=== PATIENT | male | born 1970 | race Caucasian/White ===

== ENCOUNTER 2016-07-25 16:34 | Emergency (ER) | payer SELFPAY ==
[2016-07-25 16:47] VITALS: BP 131/76; BMI 35.1
[2016-07-25] MEDS ORDERED: TORADOL 60 MG VIAL IM ONE (17:15)
--- NOTE | 2016-07-25 17:17 | DR.CP ---
HPI - Time Seen Time seen: 17:15 - PCP Primary Care Physician: DENIS - HPI Comment HPI Comment: GOING ON FOR WEEKS, WORSE TODAY. HAVE GENERALIZE WEAKNESS, - Complaint Chief Complaint Doctor Comments: HEADCHE, CHEST PAIN. Chief Complaint:: PT STATES " I HAVE A MIGRAIN AND MY CHEST IS TINGLING AND NUMBNESS TO HIS LEFT HAND ".. Self Treatment fo Chief Complaint: PT STATES " THIS HAS BEEN GOING ON FOR A FEW WEEKS AND IT HAS GOT WORSE IN THE PAST FEW DAYS.. " - Reviewed Nurses Notes Review: Yes - Source History Provided: Patient - Mode of Arrival Mode of Arrival: Ambulatory - Timing Onset of Chief Complaint: 07/20/16 Came on: Gradually Pain: Present Now - Duration Duration: Constant Duration: Weeks - Location Chest Pain Radiation Location: None - Context Onset: At rest Cardiac Risk Factors: Smoker PE Risk Factors: None History of: None Prehospital Care: None - Quality Quality: Sharp - Severity Severity: Moderate - Modifying Factors Worsens: Nothing Impoves: Nothing - Associated Signs and Symptoms Associated Signs and Symptoms: None PMH - PMH Past Medical History: No Past Medical History: Anxiety, Depression, Kidney Stones Past Surgical History: Yes Surgical History: Lithotripsy Past Surgical History Comment: HERNIA REPAIR AT AGE 15 - Family History History of Family Medical Conditions: No Family Medical History: Hypertension - Social History Does patient currently use any type of tobacco product: Yes Have you used tobacco products in the last 12 months: Yes Type of Tobacco Use: Cigarettes How many years tobacco product used: 30 Does any household member use tobacco: No Alcohol Use: None Do you use any recreational Drugs:: No Lives With: Family Lives Where: Home - infectious screening In the last 2 months have you had wt loss of >10#?: NO Have you had fever, night sweats or hemotysis?: No Have you traveled outside the country in the last 6 months?: No Isolation: Standard ROS - Review of Systems Constitutional: Weakness, Fatigue Eyes: No Symptoms Reported ENTM: No Symptoms Reported Respiratoy: No Symptoms Reported Cardiovascular: Chest Pain Gastrointestinal/Abdominal: Nausea Genitourinary: No Symptoms Reported Neurological: Headache, Weakness Musculoskeletal: Muscle Pain Integumentary: No Symptoms Reported Hematologic/Lymphatic: No Symptoms Reported Endocrine: No Symptoms Reported All Other Systems: Reviewed and Negative PE - Vitals Vitals: Pulse Rate 66 Respiratory Rate 22 Blood Pressure 131/76 O2 Sat by Pulse Oximetry 97 - General Limitations: No Limitations General Appearance: Alert - Head Head Exam: Normal Inspection - Eyes Eye exam: Normal Appearance - ENT ENT Exam: Normal External Ear Exam - Chest Chest Inspection: Symmetric Chest Wall Rise - Respiratory Respiratory Exam: Normal Lung Sounds Bilat Respiratory Exam: Bilateral Clear to Auscultation - Cardiovascular Cardiovascular Exam: Regular Rate Pulse: Normal, Radial, Femoral Edema: Normal - Abdominal Exam Abdominal Exam: Normal Inspection - Extremities Extremities Exam: Normal Inspection - Back Back Exam: Normal Inspection - Neurologic Neurological Exam: Alert, Oriented X3 MDM - Additional Information Additional Information Obtained From: Family - Differential Diagnosis Differential Diagnosis: Angina, Cholelithasis, Gastritis, Myocardial Infarction , Pneumothorax (MIGRAINE, SINUS HEADACHE) Course - Treatment Treatment: SEE ORDERS - Education/Counseling Education/Counseling: Patient, Education Educated On: Treatment, Diagnosis, Needs for Follow Up ROR - Labs Reviewed Laboratory Results Reviewed?: Yes Result Diagrams: 07/25/16 17:25 07/25/16 17:25 Laboratory: WBC 11.4 X10^3/uL (3.6-10.0) H 07/25/16 17:25 RBC 5.46 X10^6/uL (4.7-6.0) 07/25/16 17:25 Hgb 16.4 g/dL (13.5-18.0) 07/25/16 17:25 Hct 47.3 % (42.0-54.0) 07/25/16 17:25 MCV 86.7 fL (80.0-100.0) 07/25/16 17:25 MCH 30.1 pg (27.0-34.0) 07/25/16 17:25 MCHC 34.7 g/dL (33.0-35.0) 07/25/16 17:25 RDW 13.0 % (11.6-16.5) 07/25/16 17:25 Plt Count 289 X10^3/uL (150.0-450.0) 07/25/16 17:25 MPV 8.6 fL (7.4-11.0) 07/25/16 17:25 Neut % 68.2 % (42.0-75.0) 07/25/16 17:25 Lymph % 20.5 % (21.0-51.0) L 07/25/16 17:25 [place] % 7.3 % (0.0-13.0) 07/25/16 17:25 Eos % 3.3 % (0.9-2.9) H 07/25/16 17:25 Baso % 0.7 % (0.2-1.0) 07/25/16 17:25 Neut # 7.7 x10^3/uL (2.2-4.8) H 07/25/16 17:25 Lymph # 2.3 X10^3/uL (1.3-2.9) 07/25/16 17:25 [place] # 0.8 x10^3/uL (0.3-0.8) 07/25/16 17:25 Eos # 0.4 x10^3/uL (0.0-0.2) H 07/25/16 17:25 Baso # 0.1 X10^3/uL (0.0-0.1) 07/25/16 17:25 Absolute Nucleated RBC 0.0 /100WBC 07/25/16 17:25 Sodium 141 mmol/L (136-145) 07/25/16 17:25 Corrected Sodium TNP 07/25/16 17:25 Potassium 4.0 mmol/L (3.5-5.1) 07/25/16 17:25 Chloride 105 mmol/L (98-107) 07/25/16 17:25 Carbon Dioxide 24.1 mmol/L (21-32) 07/25/16 17:25 BUN 19 mg/dL (7-18) H 07/25/16 17:25 Creatinine 1.06 mg/dL (0.70-1.30) 07/25/16 17:25 Est GFR (MDRD) Af Amer > 60 (>60) 07/25/16 17:25 Est GFR (MDRD) Non-Af > 60 (>60) 07/25/16 17:25 Glucose 100 mg/dL (65-99) H 07/25/16 17:25 Calcium 8.6 mg/dL (8.5-10.1) 07/25/16 17:25 Corrected Calcium TNP 07/25/16 17:25 Total Bilirubin 0.30 mg/dL (0.2-1.0) 07/25/16 17:25 AST 13 Units/L (15-37) L 07/25/16 17:25 ALT 33 Units/L (12-78) 07/25/16 17:25 Alkaline Phosphatase 75 Units/L (46-116) 07/25/16 17:25 Creatine Kinase 60 Units/L (39-308) 07/25/16 17:25 CK-MB (CK-2) < 1.0 ng/mL (0-4.0) 07/25/16 17:25 CK/CKMB % Calc 1.7 % (<4) 07/25/16 17:25 Troponin I < 0.02 ng/mL (0-1.5) 07/25/16 17:25 Total Protein 7.1 g/dL (6.4-8.2) 07/25/16 17:25 Albumin 3.5 g/dL (3.4-5.0) 07/25/16 17:25 Globulin 3.6 g/dL (2.5-4.5) 07/25/16 17:25 Albumin/Globulin Ratio 1.0 Ratio (1.1-2.1) L 07/25/16 17:25 - XRAY XRAY Interpreted by: Radiologist XRAY Findings: REPORT DISCUSS WITH PATIENT - EKG Rhythm: NSR (EKG NOTED) - Diagnosis Discharge Problem: Sinus headache, Weakness Sinusitis Qualifiers: Sinusitis location: unspecified location Chronicity: acute Recurrence: not specified as recurrent Qualified Code(s): J01.90 - Acute sinusitis, unspecified Chest pain Qualifiers: Chest pain type: precordial pain Qualified Code(s): R07.2 - Precordial pain - Discharge Plan Disposition: 01 HOME, SELF-CARE Condition: Stable Prescriptions: Amoxicillin [Amoxil 875 mg] 875 mg PO BID #20 tab Nilusycyjv-Ygyd-Gkexneqi [Fioricet Tab] 1 tab PO Q8H PRN #20 tab PRN Reason: Migraine Headache Cetirizine HCl [Zyrtec Tab 10 mg] 10 mg PO DAILY #10 tab - Follow ups/Referrals Follow ups/Referrals: [facility],None [Primary Care Provider] - 3 days - Instructions Instructions: Sinus Headache, [id number], Sinusitis, Adult, Weakness, Easy-to -Read Additional Instructions: RETURN TO ED IF WORSE.
[2016-07-25 17:31] LABS: BASOPHILS # (AUTO) 0.1 X10^3/uL (0.0-0.1); BASOPHILS % (AUTO) 0.7 % (0.2-1.0); EOSINOPHILS # (AUTO) 0.4 x10^3/uL (0.0-0.2); EOSINOPHILS % (AUTO) 3.3 % (0.9-2.9); HEMATOCRIT 47.3 % (42.0-54.0); HEMOGLOBIN 16.4 g/dL (13.5-18.0); LYMPHOCYTES # (AUTO) 2.3 X10^3/uL (1.3-2.9); LYMPHOCYTES % (AUTO) 20.5 % (21.0-51.0); MEAN CORPUSCULAR HEMOGLOBIN 30.1 pg (27.0-34.0); MEAN CORPUSCULAR HGB CONC 34.7 g/dL (33.0-35.0); MEAN CORPUSCULAR VOLUME 86.7 fL (80.0-100.0); MEAN PLATELET VOLUME 8.6 fL (7.4-11.0); MONOCYTES # (AUTO) 0.8 x10^3/uL (0.3-0.8); MONOCYTES % (AUTO) 7.3 % (0.0-13.0); NEUTROPHILS # (AUTO) 7.7 x10^3/uL (2.2-4.8); NEUTROPHILS % (AUTO) 68.2 % (42.0-75.0); PLATELET COUNT 289 X10^3/uL (150.0-450.0); RED BLOOD COUNT 5.46 X10^6/uL (4.7-6.0); WHITE BLOOD COUNT 11.4 X10^3/uL (3.6-10.0)
--- NOTE | 2016-07-25 17:41 | RAD ---
HISTORY: Chest pain and headache. Study: Single view chest. Comparison: None. Findings: The trachea is midline. The cardiac silhouette is unremarkable. The lungs are clear without focal infiltrate or effusion. The bony thorax is unremarkable. IMPRESSION: 1. No acute cardiopulmonary disease. Reported By:
--- NOTE | 2016-07-25 17:41 | CT ---
CT brain without contrast Indication: Headache Comparison: none available Technique: Multiple axial images of the brain were obtained from the skull base to the vertex without administr ation of IV contrast. Coronal and sagittal images were also provided. Radiation dose reduction techniques were performed utilizing adjustment for MA/kVP based on patient body size. Findings: There is mild mucosal thickening involving bilateral frontoethmoidal recesses. No acute intraparenchymal hemorrhage or mass can be identified. No extra-axial fluid collections ar e seen. No alteration in the attenuation of the brain parenchyma can be identified to suggest acute or subacute ischemic change. The ventricular system is symmetric and nondilated. The extracranial structures are grossly unremarkable. IMPRESSION: 1. No acute intracranial process is identified. 2. Mild sinus mucosal disease involving bilateral frontal ethmoidal recesses. Reported By:
[2016-07-25] MEDS ORDERED: TORADOL 60 MG VIAL ONE (17:44)
[2016-07-25 17:48] LABS: BLOOD UREA NITROGEN 19 mg/dL (7-18); CALCIUM 8.6 mg/dL (8.5-10.1); CARBON DIOXIDE 24.1 mmol/L (21-32); CHLORIDE 105 mmol/L (98-107); CREATININE 1.06 mg/dL (0.70-1.30); GLUCOSE 100 mg/dL (65-99); SODIUM 141 mmol/L (136-145); TROPONIN I < 0.02 ng/mL (0-1.5); eGFR BLACK RACES > 60 (>60); eGFR NON BLACK RACES > 60 (>60)
[2016-07-25 17:53] LABS: ALANINE AMINOTRANSFERASE 33 Units/L (12-78); ALBUMIN 3.5 g/dL (3.4-5.0); ALKALINE PHOSPHATASE 75 Units/L (46-116); ASPARTATE AMINO TRANSFERASE 13 Units/L (15-37); CKMB % 1.7 % (<4); CREATINE KINASE 60 Units/L (39-308); CREATINE KINASE MB < 1.0 ng/mL (0-4.0); TOTAL PROTEIN 7.1 g/dL (6.4-8.2)
[2016-07-25] MEDS ORDERED: FIORICET TAB PO ONE ×2 (18:04→18:06)
== END 2016-07-25 18:10 | disposition home or self-care (01) ==
LOC: ER 16:54
DX: R07.89 Other chest pain (principal); J01.80 Other acute sinusitis; R07.2 Precordial pain; R53.1 Weakness
CPT/HCPCS: 36415; 70450; 71010; 80053; 82550; 82553; 84484; 85025; 93005; 93010; 96372; 99283; J1885